=== PATIENT | female | born 1965 | race American Indian/Alaskan Native ===

== ENCOUNTER 2018-04-09 07:04 | Day surgery (SDC) | payer OTHER ==
[2018-04-09 07:39] VITALS: BMI 34.4
--- NOTE | 2018-04-09 09:27 | CP.SDSHP ---
Same Day Surgery H & P - History Proposed Procedure: COLONSCOPY Pre-Op Diagnosis: SEE NOTES - Previous Medical/Surgical History Cardiac: Hypertension Misc: Other - Allergies Allergies: Allergies No Known Allergies Allergy (Verified 04/09/18 07:39) - Physical Exam General Appearance: N Vital Signs: Vital Signs 04/09/18 07:52 Temperature 97 F L Pulse Rate 90 Respiratory 18 Rate Blood Pressure 178/124 H O2 Sat by Pulse 98 Oximetry Mental Status: Alert & Oriented x3 Neuro: WNL Heart: Other Lungs: WNL GI: WNL - {Optional Preform as Required} Breast: WNL Abdomen: WNL Rectal: Other Integument: WNL : WNL Ortho: Other ENT: WNL - Date & Time Time: 09:27 Short Stay Discharge - Short Stay Discharge Admitting Diagnosis/Reason for Visit: COLON SCREENING Disposition: HOME/ ROUTINE
[2018-04-09] MEDS ORDERED: Lactated Ringer's 1,000 ML IV ONE ×2 (09:30)
[2018-04-09] MEDS ORDERED: Propofol 10 mg/ml Inj (20 ML) ONE (09:30)
[2018-04-09] MEDS ORDERED: Midazolam 2 MG/2 ML VIAL ONE ×2 (09:30→09:31)
[2018-04-09] MEDS ORDERED: Belladonna-Phenobarbital PO ONE (10:05)
[2018-04-09 10:07] VITALS: TEMP 97.8
[2018-04-09 11:07] VITALS: BP 144/94; PULSE 80; RESP 18; O2SAT 99
== END 2018-04-09 11:06 | disposition home or self-care (01) ==
LOC: C.ENDO 07:04
PROVIDERS: ATTEND Specialist
DX: Z12.11 Encounter for screening for malignant neoplasm of colon (principal); K57.30 Diverticulosis of large intestine without perforation or abscess without bleeding; K64.8 Other hemorrhoids; K58.9 Irritable bowel syndrome, unspecified
CPT/HCPCS: 45380; 88305; J2250; J2704; J7120